=== PATIENT | female | born 1980 | race Caucasian/White ===

== ENCOUNTER 2018-02-24 21:16 | Emergency (ER) | payer MEDICAID ==
[~2018-02-24] VITALS: Ht 152.4 cm; Wt 54.5 kg
[2018-02-24 21:26] VITALS: Ht 152.4 cm; Wt 54.5 kg
[2018-02-24] MEDS ORDERED: TOPAMAX100 MG PO (21:27)
[2018-02-24] MEDS ORDERED: PROZAC40 MG PO (21:27)
[2018-02-24 23:35] VITALS: BP 118/71
== END 2018-02-24 23:35 | disposition home or self-care (01) ==
LOC: D.ER 21:16
DX: T76.21XA Adult sexual abuse, suspected, initial encounter (principal); F17.200 Nicotine dependence, unspecified, uncomplicated

== ENCOUNTER 2018-11-13 19:09 | Emergency (ER) | payer MEDICAID ==
[~2018-11-13] VITALS: Ht 152.4 cm; Wt 63.5 kg
[~2018-11-13 19:09] MED LIST: PROZAC40 MG PO; TOPAMAX100 MG PO
[2018-11-13 19:16] VITALS: Ht 152.4 cm; Wt 63.5 kg
[2018-11-13] MEDS ORDERED: TYLENOL #4 W/CO1 TAB PO (20:47)
[2018-11-13 21:00] VITALS: BP 111/74
== END 2018-11-13 21:00 | disposition home or self-care (01) ==
LOC: D.ER 19:09
DX: S63.602A Unspecified sprain of left thumb, initial encounter (principal); X58.XXXA Exposure to other specified factors, initial encounter; Y93.89 Activity, other specified; Y92.019 Unspecified place in single-family (private) house as the place of occurrence of the external cause